=== PATIENT | female | born 1965 | race Caucasian/White ===

== ENCOUNTER 2016-11-03 23:56 | Emergency (ER) | payer OTHER ==
[~2016-11-03] VITALS: Ht 172.7 cm; Wt 77.8 kg
[2016-11-04 00:06] VITALS: BP 139/93; PULSE 77; RESP 16; TEMP 98; O2SAT 97
[2016-11-04] MEDS ORDERED: EFFE150C PO (00:10)
[2016-11-04] MEDS ORDERED: AUGM875T PO (00:22)
[2016-11-04] MEDS ORDERED: DOXY100C35 PO (00:22)
--- NOTE | 2016-11-04 00:22 | PD ---
HPI Chief Complaint: Bite or Sting Time Seen by Provider: 00:17 Travel History International Travel<30 days: No Contact w/Intl Traveler<30days: No Traveled to known affect area: No History of Present Illness HPI The patient is a 51-year-old female who presents to the emergency department for a "bite to the left hand. The patient states she was bit by her pet bird, a large bird like a parrot, on the volar aspect of her left thumb. Patient is right-hand dominant. The patient states that the bite bled initially , but is currently stopped. The patient cannot recall her last tetanus shot. The bird is her pet. Symptoms are moderate, alleviated after cleaning and holding pressure, and exacerbated after being bit by her pet parrot. PFSH Past Medical History Medical History: Denies Significant Hx Social History Tobacco Use: Yes Substance Use: Yes Allergies-Medications (Allergen,Severity, Reaction): Coded Allergies: Pseudoephedrine (Verified Allergy, Severe, Restlessness, 11/04/16) "CAN'T SIT STILL, MAKES ME THROW UP" Reported Meds & Prescriptions Reported Meds & Active Scripts Active Reported Effexor XR 24 HR (Venlafaxine HCl) 150 Mg Cap 150 Mg PO DAILY Review of Systems Musculoskeletal: Positive: Pain Skin: Positive Other (as noted in the history of present illness) Neurologic: No: Paresthesia, Sensory Disturbance Physical Exam Narrative GENERAL: Awake, alert, 51-year-old female who appears her stated age and is in no acute respiratory distress. SKIN: Warm and dry. HEAD: Atraumatic. Normocephalic. EYES: No injection or drainage. ENT: No nasal bleeding or discharge. Breath smells of alcohol. MUSCULOSKELETAL: 1 cm superficial bite to the volar aspect left thumb. No active bleeding noted. NEUROLOGICAL: Awake and alert. No obvious cranial nerve deficits. Motor grossly within normal limits. Normal speech. PSYCHIATRIC: Appropriate mood and affect; insight and judgment normal. Data Data Last Documented VS Vital Signs Date Time Temp Pulse Resp B/P Pulse Ox O2 Delivery O2 Flow Rate FiO2 11/04/16 00:06 98.0 77 16 139/93 97 Room Air MDM Medical Decision Making Medical Screen Exam Complete: Yes Emergency Medical Condition: Yes Medical Record Reviewed: Yes Differential Diagnosis Differential diagnosis includes bird bite, laceration, puncture wound, abrasion. Narrative Course The patient's left thumb was cleaned and irrigated. Polysporin and a dressing were applied. The patient's tetanus shot was updated. The patient we placed on Augmentin and doxycycline. She is advised to clean the wound twice a day, monitor for signs of increasing infection, and a follow-up with her primary physician. Diagnosis Primary Impression: Bitten by other birds, initial encounter Patient Instructions: General Instructions Additional Instructions: Wound care twice a day. Antibiotics as directed. Monitor for signs of infection. Tylenol and or Motrin as needed for pain. Follow-up with your primary physician. Med/Other Pt SpecificInfo: Prescription(s) given Scripts Doxycycline (Monohydrate) (Doxycycline Monohydrate)100 Mg Cap1 Cap PO BID 10 Days Prov:Thad Mckeon MD 11/04/16 Amoxicillin-Clavulanate (Augmentin)875-125 mg [id number] Mg PO BID 10 Days Ref 0 not for use in CrCl <30 ml/min. Prov:Thad Mckeon MD 11/04/16 Disposition: 01 DISCHARGE HOME Condition: Stable Thad Mckeon MD Nov 04, 2016 00:22
[2016-11-04] MEDS ORDERED: TETANUS/DIPHTHERIA TOXOID ADULT 0.5 ML VIAL IM ONE (00:30)
== END 2016-11-04 00:36 | disposition home or self-care (01) ==
LOC: PHED 23:56
DX: S61.052A Open bite of left thumb without damage to nail, initial encounter (principal); W61.01XA Bitten by parrot, initial encounter; Z23 Encounter for immunization
CPT/HCPCS: 90471; 90714

== ENCOUNTER 2018-01-20 21:35 | Emergency (ER) | payer BC, OTHER ==
[~2018-01-20 21:35] MED LIST: AUGM875T PO; DOXY100C35 PO; EFFE150C PO
[2018-01-20 21:41] VITALS: BP 118/58; PULSE 81; RESP 18; TEMP 98.1; O2SAT 95
[2018-01-20] MEDS ORDERED: LISI-519 PO (21:52)
[2018-01-20] MEDS ORDERED: SODIUM CHLOR 0.9% 1000 ML INJ 1,000 ML IV ONE (21:52)
--- NOTE | 2018-01-20 21:57 | PD ---
HPI Chief Complaint: Syncope/Near-Syncope Time Seen by Provider: 21:52 (Ping Pathak) Time Seen by Provider: 21:52 (Matty Hall MD) Travel History International Travel<30 days: No Contact w/Intl Traveler<30days: No Traveled to known affect area: No (Ping Pathak) History of Present Illness HPI 52-year-old female with history of hypertension presents to the ED via EMS for evaluation after syncopal episode. Patient states that she was having a get together with friends, eating sushi and drinking sake when she "passed out." On arrival EMS reports systolic BP in the 60s. On presentation the patient denies headache, dizziness, vision changes, chest pain, palpitations, shortness of breath, abdominal pain, nausea, vomiting. She reports chronic urinary urgency, denies dysuria, hematuria. She denies illicit drug use. (Ping Pathak) PFSH Past Medical History Depression: Yes Hypertension: Yes ?: Not Menopausal: Yes : 0 (Ping Pathak) Past Surgical History Other Surgery: Yes ("CYST REMOVAL FROM MY GROIN AREA") (Ping Pathak) Social History Alcohol Use: Yes Tobacco Use: Yes (1 PPD) Substance Use: No (PT DENIES) (Ping Pathak) Allergies-Medications (Allergen,Severity, Reaction): Coded Allergies: pseudoephedrine (Unverified Allergy, Severe, Restlessness, 01/20/18) "CAN'T SIT STILL, MAKES ME THROW UP" Reported Meds & Prescriptions Reported Meds & Active Scripts Active Reported Lisinopril 5 Mg Tab 5 Mg PO DAILY Effexor XR 24 HR (Venlafaxine HCl) 150 Mg Cap 150 Mg PO DAILY (Matty Hall MD) Review of Systems ROS Limitations: Intoxication Except as stated in HPI: all other systems reviewed are Neg (Ping Pathak) Physical Exam Exam Limitations: Intoxication Narrative GENERAL: Well-nourished, well-developed gregarious white female no acute distress. SKIN: Focused skin assessment warm/dry. HEAD: Normocephalic. EYES: No scleral icterus. No injection or drainage. NECK: Supple, trachea midline. No JVD or lymphadenopathy. CARDIOVASCULAR: Regular rate and rhythm without murmurs, gallops, or rubs. RESPIRATORY: Breath sounds clear and equal bilaterally. No accessory muscle use. GASTROINTESTINAL: Abdomen soft, non-tender, nondistended. Active bowel sounds. MUSCULOSKELETAL: No cyanosis, or edema. NEUROLOGICAL: Awake and alert. Cranial nerves II through XII intact. Motor and sensory grossly within normal limits. Five out of 5 muscle strength in all muscle groups. Slurred speech. BACK: Nontender without obvious deformity. No CVA tenderness. (Ping Pathak) Data Data Last Documented VS Vital Signs Date Time Temp Pulse Resp B/P (MAP) Pulse Ox O2 Delivery O2 Flow Rate FiO2 01/21/18 01:25 84 16 104/54 (71) 98 Room Air 01/20/18 21:41 98.1 (Matty Hall MD) Orders Orders Electrocardiogram (01/20/18 21:52) Complete Blood Count With Diff (01/20/18 21:52) Comprehensive Metabolic Panel (01/20/18 21:52) Ckmb (Isoenzyme) Profile (01/20/18:52) Troponin I (01/20/18:52) Act Partial Throm Time (Ptt) (01/20/18:52) Prothrombin Time / Inr (Pt) (01/20/18 21:52) Urinalysis - C+S If Indicated (01/20/18 21:52) Ct Brain W/O Iv Contrast(Rout) (01/20/18 21:52) Ecg Monitoring (01/20/18 21:52) Iv Access Insert/Monitor (01/20/18:52) Oximetry (01/20/18 21:52) Sodium Chloride 0.9% Flush (Ns Flush) (01/20/18 22:00) Sodium Chlor 0.9% 1000 Ml Inj (Ns 1000 M (01/20/18 21:52) Alcohol (Ethanol) (01/20/18 21:52) Drug Screen, Random Urine (01/20/18 21:52) CKMB (01/20/18 22:00) CKMB% (01/20/18 22:00) Ed Discharge Order (01/21/18 04:11) (Matty Hall MD) Labs Laboratory Tests Test 01/20/18 22:00 01/21/18 01:35 White Blood Count 8.7 TH/MM3 Red Blood Count 3.94 MIL/MM3 Hemoglobin 12.6 GM/DL Hematocrit 37.8 % Mean Corpuscular Volume 95.8 FL Mean Corpuscular Hemoglobin 31.9 PG Mean Corpuscular Hemoglobin Concent 33.3 % Red Cell Distribution Width 14.5 % Platelet Count 233 TH/MM3 Mean Platelet Volume 8.6 FL Neutrophils (%) (Auto) 50.0 % Lymphocytes (%) (Auto) 42.0 % Monocytes (%) (Auto) 6.8 % Eosinophils (%) (Auto) 0.8 % Basophils (%) (Auto) 0.4 % Neutrophils # (Auto) 4.3 TH/MM3 Lymphocytes # (Auto) 3.6 TH/MM3 Monocytes # (Auto) 0.6 TH/MM3 Eosinophils # (Auto) 0.1 TH/MM3 Basophils # (Auto) 0.0 TH/MM3 CBC Comment DIFF FINAL Differential Comment Prothrombin Time 10.4 SEC Prothromb Time International Ratio 1.0 RATIO Activated Partial Thromboplast Time 23.3 SEC Blood Urea Nitrogen 11 MG/DL Creatinine 0.79 MG/DL Random Glucose 145 MG/DL Total Protein 6.8 GM/DL Albumin 3.3 GM/DL Calcium Level 7.8 MG/DL Alkaline Phosphatase 66 U/L Aspartate Amino Transf (AST/SGOT) 31 U/L Alanine Aminotransferase (ALT/SGPT) 38 U/L Total Bilirubin 0.1 MG/DL Sodium Level 143 MEQ/L Potassium Level 3.4 MEQ/L Chloride Level 109 MEQ/L Carbon Dioxide Level 22.6 MEQ/L Anion Gap 11 MEQ/L Estimat Glomerular Filtration Rate 77 ML/MIN Total Creatine Kinase 201 U/L Creatine Kinase MB 4.8 NG/ML Creatine Kinase MB % 2.4 % Troponin I LESS THAN 0.02 NG/ML Ethyl Alcohol Level 230 MG/DL Urine Color YELLOW Urine Turbidity CLEAR Urine pH 5.5 Urine Specific [place] 1.010 Urine Protein NEG mg/dL Urine Glucose (UA) NEG mg/dL Urine Ketones NEG mg/dL Urine Occult Blood NEG Urine Nitrite NEG Urine Bilirubin NEG Urine Urobilinogen LESS THAN 2.0 MG/DL Urine Leukocyte Esterase NEG Urine RBC 1 /hpf Urine WBC 2 /hpf Urine Squamous Epithelial Cells 2 /hpf Urine Hyaline Casts 5 /lpf Urine Waxy Casts 3 /lpf Urine Mucus FEW /lpf Microscopic Urinalysis Comment CULT NOT INDICATED Urine Opiates Screen NEG Urine Barbiturates Screen NEG Urine Amphetamines Screen NEG Urine Benzodiazepines Screen NEG Urine Cocaine Screen NEG Urine Cannabinoids Screen POS (Matty Hall MD) MDM Medical Decision Making Medical Screen Exam Complete: Yes Emergency Medical Condition: Yes Differential Diagnosis alcohol intoxication versus cardiogenic syncope versus UTI versus metabolic derangement versus other Narrative Course 52-year-old female with history of hypertension presents to the ED via EMS for evaluation after syncopal episode. Patient states that she was having a get together with friends, eating sushi and drinking sake when she "passed out." On arrival EMS reports systolic BP in the 60s. On arrival patient is alert, interacting in a lively manner with the people in the room. On exam the patient is obviously intoxicated, exam is otherwise unremarkable. EKG rate 80, sinus rhythm. DC interval 166, QRS 102, QTC 415 ms. Normal axis. No acute ST changes. Reviewed by Dr. Hall. Cardiac enzymes negative 1. No concerning abnormalities of the CBC, coags, urine. Mild hypokalemia and hypocalcemia noted. Tox screen positive for benign cannabinoids. Alcohol level 230. Will monitor the patient until she is clinically sober. Patient signed out to Dr. Hall at end of shift. Please see his note for discharge. (Ping Pathak) Diagnosis Primary Impression: Alcohol intoxication Qualified Codes: F10.920 - Alcohol use, unspecified with intoxication, uncomplicated Patient Instructions: Dizziness (ED), General Instructions Ping Pathak January 20, 2018 21:57 Matty Hall MD January 21, 2018 04:15
[2018-01-20 21:59] VITALS: O2SAT 97
[2018-01-20 22:00] VITALS: BP 98/50; PULSE 80; RESP 16; O2SAT 98
[2018-01-20] MEDS ORDERED: SODIUM CHLORIDE 0.9% FLUSH 10 ML FLUSH IVF PRN (22:00)
[2018-01-20 22:13] LABS: AUTOMATED NEUTROPHIL # 4.3 TH/MM3 (1.8-7.7); BASOPHIL % 0.4 % (0.0-2.0); EOSINOPHIL # 0.1 TH/MM3 (0-0.4); EOSINOPHIL % 0.8 % (0.0-4.0); HEMATOCRIT 37.8 % (35.0-46.0); HEMOGLOBIN 12.6 GM/DL (11.6-15.3); LYMPHOCYTE # 3.6 TH/MM3 (1.0-4.8); MEAN CELL VOLUME 95.8 FL (80.0-100.0); MEAN CORPUSCULAR HEMOGLOBIN 31.9 PG (27.0-34.0); MEAN CORPUSCULAR HGB CONC 33.3 % (32.0-36.0); MEAN PLATELET VOLUME 8.6 FL (7.0-11.0); MONO % 6.8 % (0.0-8.0); MONOCYTE # 0.6 TH/MM3 (0-0.9); PLATELET COUNT 233 TH/MM3 (150-450); RED BLOOD COUNT 3.94 MIL/MM3 (4.00-5.30); RED CELL DISTRIBUTION WIDTH 14.5 % (11.6-17.2); WHITE BLOOD COUNT 8.7 TH/MM3 (4.0-11.0)
[2018-01-20 22:27] LABS: ALBUMIN 3.3 GM/DL (3.4-5.0); AST (GOT) 31 U/L (15-37); BICARBONATE 22.6 MEQ/L (21.0-32.0); BLOOD UREA NITROGEN 11 MG/DL (7-18); CALCIUM 7.8 MG/DL (8.5-10.1); CHLORIDE 109 MEQ/L (98-107); CREATININE 0.79 MG/DL (0.50-1.00); GLOMERULAR FILTRATION RATE 77 ML/MIN (>89); GLUCOSE,RANDOM 145 MG/DL (74-106); SODIUM (NA) 143 MEQ/L (136-145)
[2018-01-20 22:28] LABS: ALT (GPT) 38 U/L (10-53)
--- NOTE | 2018-01-20 22:30 | RADRPT ---
EXAM DATE: 01/20/2018 10:23 PM EDT AGE/SEX: 52 years / Female INDICATIONS: Syncope CLINICAL DATA: This is the patient's initial encounter. Patient reports that signs and symptoms have been present for 1 day and indicates a pain score of 0/10. MEDICAL/SURGICAL HISTORY: Hypertension. None. RADIATION DOSE: 56.35 CTDI (mGy) COMPARISON: No prior [facility] exams available for comparison. TECHNIQUE: CT of the head without contrast. Using automated exposure control and adjustment of the mA and/or kV according to patient size, radiation dose was kept as low as reasonably achievable to ob tain optimal diagnostic quality images. FINDINGS: Cerebrum: The ventricles are normal for age. No evidence of midline shift, mass lesion, hemorrhage or acute infarction. No extraaxial fluid collections are seen. Posterior Fossa: The cerebellum and brainstem are intact. The 4th ventricle is midline. The cerebe llopontine angle is unremarkable. Extracranial: The visualized portion of the orbits is intact. Skull: The calvaria is intact. No evidence of skull fracture. CONCLUSION: 1. Negative noncontrast CT brain. Electronically signed by: Patricio Hester MD 01/20/2018 10:28 PM EDT
[2018-01-20 22:32] LABS: ALKALINE PHOSPHATASE 66 U/L (45-117); TOTAL BILIRUBIN ADULT 0.1 MG/DL (0.2-1.0); TOTAL PROTEIN 6.8 GM/DL (6.4-8.2); TROPONIN I LESS THAN 0.02 NG/ML (0.02-0.05)
[2018-01-20 22:34] LABS: PROTHROMBIN TIME - PATIENT 10.4 SEC (9.8-11.6)
[2018-01-20 23:22] VITALS: BP 102/56; PULSE 76; RESP 18; O2SAT 97
[2018-01-21 01:25] VITALS: BP 104/54; PULSE 84; RESP 16; O2SAT 98
[2018-01-21 02:01] LABS: BILIRUBIN, URINE NEG (NEG); BLOOD, URINE NEG (NEG); GLUCOSE,URINE NEG (NEG); HYALINE CAST, URINE 5 /lpf (RARE); KETONE, URINE NEG (NEG); MUCUS URINE FEW /lpf (OCC); NITRITE,URINE NEG (NEG); PH, URINE 5.5 (5.0-8.5); SQUAMOUS EPITHELIAL CELL URINE 2 /hpf (0-5); URINE COLOR YELLOW (YELLW/STRAW); URINE LEUKOCYTE ESTERASE NEG (NEG); WAXY CAST, URINE 3 /lpf
--- NOTE | 2018-01-22 08:13 | EKG ---
Date Performed: 01/20/2018 Time Performed: 21:46:44 PTAGE: 52 years EKG: Sinus rhythm NORMAL ECG NO PREVIOUS TRACING DOCTOR: George Devine Interpretating Date/Time 01/22/2018 08:11:31
== END 2018-01-21 04:33 | disposition home or self-care (01) ==
LOC: NEPE 21:35
DX: F10.920 Alcohol use, unspecified with intoxication, uncomplicated (principal); I10 Essential (primary) hypertension; F32.9 Major depressive disorder, single episode, unspecified; F17.200 Nicotine dependence, unspecified, uncomplicated; Y90.7 Blood alcohol level of 200-239 mg/100 ml; Z79.899 Other long term (current) drug therapy
CPT/HCPCS: 70450; 80053; 80307; 81001; 82550; 82552; 84484; 85025; 85610; 85730; 93005; 96360; 99285; J7030